=== PATIENT | female | born 1930 | race Caucasian/White ===

== ENCOUNTER 2018-02-23 09:25 | Emergency (ER) | payer MEDICARE, BC ==
[2018-02-23 09:39] LABS: ADD MAN DIFF? NO
[2018-02-23 09:43] LABS: BASOPHIL # 0.1 10^3/ul (0.0-0.1); BASOPHILS % 0.8 % (0.0-2.0); EOSINOPHILS # 0.2 10^3/ul (0.0-0.5); EOSINOPHILS % 3.1 % (0.0-7.0); HEMATOCRIT 35.2 % (37.0-47.0); HEMOGLOBIN 10.6 g/dl (12.0-16.0); LYMPHOCYTES # 1.6 10^3/ul (0.8-2.9); LYMPHOCYTES % 25.8 % (15.0-51.0); MEAN CORPUSCULAR HEMOGLOBIN 26.1 pg (29.0-33.0); MEAN CORPUSCULAR HGB CONC 30.1 g/dl (32.0-37.0); MEAN CORPUSCULAR VOLUME 86.7 fl (82.0-101.0); MEAN PLATELET VOLUME 11.5 fl (7.4-10.4); MONOCYTE # 0.6 10^3/ul (0.3-0.9); MONOCYTES % 9.4 % (0.0-11.0); NEUTROPHIL # 3.8 10^3/ul (1.6-7.5); NEUTROPHILS % 60.6 % (39.0-77.0); PLATELET COUNT 279 10^3/UL (140-415); RED BLOOD COUNT 4.06 10^6/ul (4.20-5.40); RED CELL DISTRIBUTION WIDTH 15.3 % (11.5-14.5)
[2018-02-23 09:43] LABS: WHITE BLOOD COUNT 6.4 10^3/ul (4.8-10.8)
[2018-02-23 10:02] LABS: INR 0.95; PARTIAL THROMBOPLASTIN TIME 27.9 Sec (25.0-35.0); PROTIME 12.8 Sec (11.9-14.9)
[2018-02-23 10:05] LABS: ALANINE AMINOTRANSFERASE 14 IU/L (13-69); ALBUMIN 4.4 g/dl (3.3-4.9); ALBUMIN/GLOBULIN RATIO 1.41; ALKALINE PHOSPHATASE 47 IU/L (42-121); ANION GAP 14 (8-16); ASPARTATE AMINO TRANSFERASE 29 IU/L (15-46); BILIRUBIN,INDIRECT 0.2 mg/dl (0-1.1); BILIRUBIN,TOTAL 0.2 mg/dl (0.2-1.3); BLOOD UREA NITROGEN 40 mg/dl (7-20); CALCIUM 10.1 mg/dl (8.4-10.2); CARBON DIOXIDE 26 mmol/L (21-31); CHLORIDE 108 mmol/L (97-110); CREATININE 1.35 mg/dl (0.44-1.00); GLUCOSE 137 mg/dl (70-220); POTASSIUM 4.4 mmol/L (3.5-5.1); SODIUM 144 mmol/L (135-144); TOTAL PROTEIN 7.5 g/dl (6.1-8.1)
[2018-02-23 10:15] LABS: TROPONIN-I 0.013 ng/ml (0.000-0.120)
[2018-02-23] MEDS: hydrALAzine 20 MG INJ IV (10:56)
[2018-02-23] MEDS: OXYMETAZOLINE 0.05% 15 ML NAS SPRAY NASAL (11:22)
== END 2018-02-23 12:45 | disposition home or self-care (01) ==
LOC: E/R 09:25
DX: R04.0 Epistaxis (principal); I16.0 Hypertensive urgency; I10 Essential (primary) hypertension; E11.9 Type 2 diabetes mellitus without complications; Z79.82 Long term (current) use of aspirin; Z79.01 Long term (current) use of anticoagulants; Z79.84 Long term (current) use of oral hypoglycemic drugs
CPT/HCPCS: 30901; 36415; 80053; 84484; 85025; 85610; 85730; 93005; 96374; 99284-25

== ENCOUNTER 2018-02-27 22:10 | Emergency (ER) | payer MEDICARE, BC ==
[2018-02-27 23:19] LABS: ADD MAN DIFF? NO
[2018-02-27 23:34] LABS: HEMATOCRIT 35.1 % (37.0-47.0); HEMOGLOBIN 10.5 g/dl (12.0-16.0); MEAN CORPUSCULAR HEMOGLOBIN 26.2 pg (29.0-33.0); MEAN CORPUSCULAR HGB CONC 29.9 g/dl (32.0-37.0); MEAN CORPUSCULAR VOLUME 87.5 fl (82.0-101.0); RED BLOOD COUNT 4.01 10^6/ul (4.20-5.40)
[2018-02-27 23:35] LABS: BASOPHIL # 0.1 10^3/ul (0.0-0.1); BASOPHILS % 0.9 % (0.0-2.0); EOSINOPHILS # 0.2 10^3/ul (0.0-0.5); EOSINOPHILS % 2.7 % (0.0-7.0); LYMPHOCYTES # 1.6 10^3/ul (0.8-2.9); LYMPHOCYTES % 22.3 % (15.0-51.0); MEAN PLATELET VOLUME 11.3 fl (7.4-10.4); MONOCYTE # 0.7 10^3/ul (0.3-0.9); MONOCYTES % 9.2 % (0.0-11.0); NEUTROPHIL # 4.5 10^3/ul (1.6-7.5); NEUTROPHILS % 64.6 % (39.0-77.0); PLATELET COUNT 268 10^3/UL (140-415); RED CELL DISTRIBUTION WIDTH 15.4 % (11.5-14.5)
[2018-02-27 23:47] LABS: ANION GAP 14 (8-16); BLOOD UREA NITROGEN 40 mg/dl (7-20); CALCIUM 10.4 mg/dl (8.4-10.2); CARBON DIOXIDE 25 mmol/L (21-31); CHLORIDE 106 mmol/L (97-110); CREATININE 1.41 mg/dl (0.44-1.00); GLUCOSE 111 mg/dl (70-220); POTASSIUM 4.2 mmol/L (3.5-5.1); SODIUM 141 mmol/L (135-144)
[2018-02-27 23:57] LABS: TROPONIN-I < 0.012 ng/ml (0.000-0.120)
== END 2018-02-28 02:05 | disposition home or self-care (01) ==
LOC: E/R 22:10
DX: I48.0 Paroxysmal atrial fibrillation (principal); I10 Essential (primary) hypertension; E11.9 Type 2 diabetes mellitus without complications; Z79.82 Long term (current) use of aspirin; Z79.01 Long term (current) use of anticoagulants; Z79.84 Long term (current) use of oral hypoglycemic drugs
CPT/HCPCS: 36415; 71045; 80048; 84484; 85025; 93005; 99285-25

== ENCOUNTER 2018-03-02 12:00 | Emergency (ER) | payer MEDICARE, BC ==
[2018-03-02 12:24] LABS: ADD MAN DIFF? NO
[2018-03-02] MEDS: METOPROLOL 5 MG INJ IV ×3 (12:25→12:40)
[2018-03-02 12:29] LABS: WHITE BLOOD COUNT 5.9 10^3/ul (4.8-10.8)
[2018-03-02 12:29] LABS: BASOPHIL # 0.1 10^3/ul (0.0-0.1); BASOPHILS % 0.8 % (0.0-2.0); EOSINOPHILS # 0.1 10^3/ul (0.0-0.5); EOSINOPHILS % 2.2 % (0.0-7.0); HEMATOCRIT 33.6 % (37.0-47.0); HEMOGLOBIN 10.3 g/dl (12.0-16.0); LYMPHOCYTES # 1.2 10^3/ul (0.8-2.9); LYMPHOCYTES % 20.8 % (15.0-51.0); MEAN CORPUSCULAR HEMOGLOBIN 26.5 pg (29.0-33.0); MEAN CORPUSCULAR HGB CONC 30.7 g/dl (32.0-37.0); MEAN CORPUSCULAR VOLUME 86.6 fl (82.0-101.0); MEAN PLATELET VOLUME 11.7 fl (7.4-10.4); MONOCYTE # 0.5 10^3/ul (0.3-0.9); MONOCYTES % 9.1 % (0.0-11.0); NEUTROPHILS % 66.9 % (39.0-77.0); PLATELET COUNT 275 10^3/UL (140-415); RED BLOOD COUNT 3.88 10^6/ul (4.20-5.40); RED CELL DISTRIBUTION WIDTH 15.5 % (11.5-14.5)
[2018-03-02 12:46] LABS: ANION GAP 14 (8-16); BLOOD UREA NITROGEN 39 mg/dl (7-20); CALCIUM 10.2 mg/dl (8.4-10.2); CARBON DIOXIDE 24 mmol/L (21-31); CHLORIDE 107 mmol/L (97-110); CREATININE 1.37 mg/dl (0.44-1.00); GLUCOSE 176 mg/dl (70-220); POTASSIUM 4.2 mmol/L (3.5-5.1); SODIUM 141 mmol/L (135-144)
[2018-03-02 12:49] LABS: INR 1.06; PROTIME 13.9 Sec (11.9-14.9); PT RATIO 1.1
[2018-03-02 12:57] LABS: TROPONIN-I 0.013 ng/ml (0.000-0.120)
== END 2018-03-02 14:08 | disposition home or self-care (01) ==
LOC: E/R 12:00
DX: I48.91 Unspecified atrial fibrillation (principal); I10 Essential (primary) hypertension; E11.9 Type 2 diabetes mellitus without complications; Z79.82 Long term (current) use of aspirin; Z79.84 Long term (current) use of oral hypoglycemic drugs
CPT/HCPCS: 36415; 71045; 80048; 84484; 85025; 85610; 85730; 93005; 96374; 99285-25

== ENCOUNTER 2018-03-02 21:33 | Emergency (ER) | payer MEDICARE, BC ==
[2018-03-02 21:56] LABS: ADD MAN DIFF? NO
[2018-03-02 22:00] LABS: BASOPHIL # 0.1 10^3/ul (0.0-0.1); EOSINOPHILS # 0.2 10^3/ul (0.0-0.5); EOSINOPHILS % 2.5 % (0.0-7.0); HEMATOCRIT 33.8 % (37.0-47.0); HEMOGLOBIN 10.2 g/dl (12.0-16.0); LYMPHOCYTES # 1.6 10^3/ul (0.8-2.9); MEAN CORPUSCULAR HEMOGLOBIN 26.2 pg (29.0-33.0); MEAN CORPUSCULAR HGB CONC 30.2 g/dl (32.0-37.0); MEAN CORPUSCULAR VOLUME 86.9 fl (82.0-101.0); MONOCYTE # 0.6 10^3/ul (0.3-0.9); MONOCYTES % 10.8 % (0.0-11.0); NEUTROPHIL # 3.5 10^3/ul (1.6-7.5); NEUTROPHILS % 58.5 % (39.0-77.0); PLATELET COUNT 266 10^3/UL (140-415); RED BLOOD COUNT 3.89 10^6/ul (4.20-5.40); RED CELL DISTRIBUTION WIDTH 15.8 % (11.5-14.5)
[2018-03-02 22:00] LABS: WHITE BLOOD COUNT 5.9 10^3/ul (4.8-10.8)
[2018-03-02 22:20] LABS: ALANINE AMINOTRANSFERASE 19 IU/L (13-69); ALBUMIN 3.9 g/dl (3.3-4.9); ALBUMIN/GLOBULIN RATIO 1.11; ALKALINE PHOSPHATASE 49 IU/L (42-121); ANION GAP 15 (8-16); ASPARTATE AMINO TRANSFERASE 35 IU/L (15-46); BILIRUBIN,INDIRECT 0.2 mg/dl (0-1.1); BILIRUBIN,TOTAL 0.2 mg/dl (0.2-1.3); BLOOD UREA NITROGEN 43 mg/dl (7-20); CALCIUM 10.1 mg/dl (8.4-10.2); CARBON DIOXIDE 24 mmol/L (21-31); CHLORIDE 106 mmol/L (97-110); GLUCOSE 161 mg/dl (70-220); LIPASE 184 U/L (23-300); POTASSIUM 4.6 mmol/L (3.5-5.1); SODIUM 140 mmol/L (135-144); TOTAL PROTEIN 7.4 g/dl (6.1-8.1)
[2018-03-02 22:32] LABS: TROPONIN-I 0.026 ng/ml (0.000-0.120)
== END 2018-03-03 00:29 | disposition home or self-care (01) ==
LOC: E/R 03-03 00:29
DX: I48.91 Unspecified atrial fibrillation (principal); D64.9 Anemia, unspecified; N28.9 Disorder of kidney and ureter, unspecified; E11.9 Type 2 diabetes mellitus without complications; I10 Essential (primary) hypertension; Z79.01 Long term (current) use of anticoagulants; Z79.82 Long term (current) use of aspirin; Z79.84 Long term (current) use of oral hypoglycemic drugs
CPT/HCPCS: 36415; 80053; 83690; 84484; 85025; 99284-25

== ENCOUNTER 2018-07-22 20:32 | Inpatient (IN) | payer MEDICARE, BC ==
[2018-07-22 22:22] LABS: ADD MAN DIFF? NO
[2018-07-22 22:28] LABS: BASOPHILS % 0.2 % (0.0-2.0); HEMATOCRIT 35.6 % (37.0-47.0); HEMOGLOBIN 11.1 g/dl (12.0-16.0); LYMPHOCYTES # 1.1 10^3/ul (0.8-2.9); LYMPHOCYTES % 8.6 % (15.0-51.0); MEAN CORPUSCULAR HEMOGLOBIN 26.1 pg (29.0-33.0); MEAN CORPUSCULAR HGB CONC 31.2 g/dl (32.0-37.0); MEAN CORPUSCULAR VOLUME 83.8 fl (82.0-101.0); MEAN PLATELET VOLUME 10.9 fl (7.4-10.4); MONOCYTE # 0.7 10^3/ul (0.3-0.9); MONOCYTES % 5.1 % (0.0-11.0); NEUTROPHILS % 85.8 % (39.0-77.0); PLATELET COUNT 417 10^3/UL (140-415); RED BLOOD COUNT 4.25 10^6/ul (4.20-5.40); RED CELL DISTRIBUTION WIDTH 16.1 % (11.5-14.5)
[2018-07-22 22:28] LABS: WHITE BLOOD COUNT 12.8 10^3/ul (4.8-10.8)
[2018-07-22] MEDS: SOD CHLORIDE 0.9% 500 ML IV (22:32)
[2018-07-22 22:47] LABS: ALANINE AMINOTRANSFERASE 9 IU/L (13-69); ALBUMIN 4.6 g/dl (3.3-4.9); ALBUMIN/GLOBULIN RATIO 1.17; ALKALINE PHOSPHATASE 54 IU/L (42-121); ANION GAP 22 (5-13); ASPARTATE AMINO TRANSFERASE 30 IU/L (15-46); BILIRUBIN,INDIRECT 0.4 mg/dl (0-1.1); BILIRUBIN,TOTAL 0.4 mg/dl (0.2-1.3); BLOOD UREA NITROGEN 42 mg/dl (7-20); CALCIUM 11.3 mg/dl (8.4-10.2); CARBON DIOXIDE 23 mmol/L (21-31); CHLORIDE 99 mmol/L (97-110); CREATININE 1.68 mg/dl (0.44-1.00); GLUCOSE 161 mg/dl (70-220); INR 1.26; LIPASE 87 U/L (23-300); POTASSIUM 4.3 mmol/L (3.5-5.1); PROTIME 15.9 Sec (11.9-14.9); PT RATIO 1.2; SODIUM 144 mmol/L (135-144); TOTAL PROTEIN 8.5 g/dl (6.1-8.1)
[2018-07-22 22:48] LABS: PARTIAL THROMBOPLASTIN TIME 31.2 Sec (23.0-35.0)
[2018-07-23] MEDS ORDERED: ONDANSETRON 4 MG INJ IV (02:30)
[2018-07-23] MEDS ORDERED: NACL 0.9% 3 ML SYG IV (02:30)
[2018-07-23] MEDS ORDERED: GLUCOSE GEL 15 GRAM TUBE PO ×2 (03:00)
[2018-07-23] MEDS ORDERED: DEXTROSE 50% 50 ML SYRINGE IV ×2 (03:00)
[2018-07-23] MEDS ORDERED: ALBUTEROL/IPRATROPIUM (NEB) 3 ML AMP HHN (03:00)
[2018-07-23] MEDS ORDERED: GUAIFENESIN/CODEINE 5ML CUP PO (03:00)
[2018-07-23] MEDS ORDERED: GLUCAGON 1 MG INJ IM (03:00)
[2018-07-23] MEDS ORDERED: GLUCOSE GEL 15 GRAM TUBE BUCCAL (03:00)
[2018-07-23] MEDS: SOD CHLORIDE 0.9% 1,000 ML IV ×2 (03:35→16:47)
[2018-07-23] MEDS: Insulin NOVOLOG SS MILD Algorithm (NPO/TPN/ENTERAL FEEDS) SC ×3 (06:00→18:00)
[2018-07-23] MEDS ORDERED: INSULIN ASPART [NOVOLOG] 3 ML PEN SC ×3 (06:00→21:00)
[2018-07-23 06:09] LABS: ADD MAN DIFF? NO
[2018-07-23 06:14] LABS: BASOPHIL # 0.1 10^3/ul (0.0-0.1); BASOPHILS % 0.4 % (0.0-2.0); EOSINOPHILS # 0.1 10^3/ul (0.0-0.5); EOSINOPHILS % 0.4 % (0.0-7.0); HEMATOCRIT 29.9 % (37.0-47.0); HEMOGLOBIN 9.5 g/dl (12.0-16.0); LYMPHOCYTES # 1.6 10^3/ul (0.8-2.9); LYMPHOCYTES % 13.5 % (15.0-51.0); MEAN CORPUSCULAR HEMOGLOBIN 26.5 pg (29.0-33.0); MEAN CORPUSCULAR HGB CONC 31.8 g/dl (32.0-37.0); MEAN CORPUSCULAR VOLUME 83.5 fl (82.0-101.0); MEAN PLATELET VOLUME 10.9 fl (7.4-10.4); MONOCYTE # 1.2 10^3/ul (0.3-0.9); MONOCYTES % 9.9 % (0.0-11.0); NEUTROPHILS % 75.3 % (39.0-77.0); PLATELET COUNT 338 10^3/UL (140-415); RED BLOOD COUNT 3.58 10^6/ul (4.20-5.40); RED CELL DISTRIBUTION WIDTH 16.2 % (11.5-14.5)
[2018-07-23 06:24] LABS: HEMOGLOBIN A1C 6.1 % (0-5.9)
[2018-07-23 06:35] LABS: ALANINE AMINOTRANSFERASE 19 IU/L (13-69); ALBUMIN 3.6 g/dl (3.3-4.9); ALBUMIN/GLOBULIN RATIO 1.12; ALKALINE PHOSPHATASE 42 IU/L (42-121); ANION GAP 14 (5-13); ASPARTATE AMINO TRANSFERASE 23 IU/L (15-46); BILIRUBIN,INDIRECT 0.3 mg/dl (0-1.1); BILIRUBIN,TOTAL 0.3 mg/dl (0.2-1.3); BLOOD UREA NITROGEN 34 mg/dl (7-20); CARBON DIOXIDE 24 mmol/L (21-31); CHLORIDE 105 mmol/L (97-110); CREATININE 1.38 mg/dl (0.44-1.00); GLUCOSE 105 mg/dl (70-220); MAGNESIUM 1.8 mg/dl (1.7-2.5); POTASSIUM 4.1 mmol/L (3.5-5.1); SODIUM 143 mmol/L (135-144); TOTAL PROTEIN 6.8 g/dl (6.1-8.1)
[2018-07-23] MEDS: METOPROLOL 25 MG TAB PO ×2 (08:32→21:15)
[2018-07-23] MEDS: FENOFIBRATE 145 MG TAB PO (08:32)
[2018-07-23 10:57] LABS: IRON 34 ug/dl (35-150)
[2018-07-23 11:06] LABS: % IRON SATURATION 12 % SAT (22-52); TOTAL IRON BINDING CAPACITY 279 ug/dl (241-421)
[2018-07-23] MEDS: DOCUSATE SODIUM 100 MG CAP PO ×2 (11:32→21:15)
[2018-07-23] MEDS: POLYETHYLENE GLYCOL 17 GM PACKET PO (11:32)
[2018-07-23] MEDS: morphine 2 MG INJ IV (13:35)
[2018-07-23] MEDS: MINERAL OIL 133 ML ENEMA PR (13:51)
[2018-07-23] MEDS ORDERED: MINERAL OIL 133 ML ENEMA PR (14:00)
[2018-07-23] MEDS: BISACODYL (EC) 5 MG TAB PO (15:21)
[2018-07-23] MEDS: MAGNESIUM CITRATE 300 ML BTL PO (16:46)
[2018-07-23] MEDS: HYDROCODONE/APAP (5/325) TAB PO (17:54)
[2018-07-23] MEDS: POLYETHYLENE GLYCOL 3350 119 GM POWDER PO (17:59)
[2018-07-23] MEDS: Insulin NOVOLOG SS MILD Algorithm (SS with meals and bedtime) SC (21:00)
[2018-07-23] MEDS: LATANOPROST 0.005% 2.5 ML OPH BOTH EYES (21:14)
[2018-07-24] MEDS: ACCU-CHEK XX (02:00)
[2018-07-24 06:28] LABS: ADD MAN DIFF? NO
[2018-07-24 06:30] LABS: WHITE BLOOD COUNT 9.9 10^3/ul (4.8-10.8)
[2018-07-24 06:30] LABS: BASOPHILS % 0.4 % (0.0-2.0); EOSINOPHILS # 0.1 10^3/ul (0.0-0.5); HEMATOCRIT 29.6 % (37.0-47.0); HEMOGLOBIN 9.2 g/dl (12.0-16.0); LYMPHOCYTES # 1.6 10^3/ul (0.8-2.9); LYMPHOCYTES % 15.8 % (15.0-51.0); MEAN CORPUSCULAR HEMOGLOBIN 26.5 pg (29.0-33.0); MEAN CORPUSCULAR HGB CONC 31.1 g/dl (32.0-37.0); MEAN CORPUSCULAR VOLUME 85.3 fl (82.0-101.0); MEAN PLATELET VOLUME 11.1 fl (7.4-10.4); MONOCYTES % 9.9 % (0.0-11.0); NEUTROPHIL # 7.2 10^3/ul (1.6-7.5); NEUTROPHILS % 72.5 % (39.0-77.0); PLATELET COUNT 329 10^3/UL (140-415); RED BLOOD COUNT 3.47 10^6/ul (4.20-5.40); RED CELL DISTRIBUTION WIDTH 16.6 % (11.5-14.5)
[2018-07-24] MEDS: POLYETHYLENE GLYCOL 3350 119 GM POWDER PO (06:41)
[2018-07-24] MEDS: Insulin NOVOLOG SS MILD Algorithm (SS with meals and bedtime) SC (07:30)
[2018-07-24 07:38] LABS: ANION GAP 9 (5-13); BLOOD UREA NITROGEN 31 mg/dl (7-20); CALCIUM 9.8 mg/dl (8.4-10.2); CARBON DIOXIDE 27 mmol/L (21-31); CHLORIDE 108 mmol/L (97-110); CREATININE 1.24 mg/dl (0.44-1.00); GLUCOSE 92 mg/dl (70-220); MAGNESIUM 2.1 mg/dl (1.7-2.5); POTASSIUM 3.2 mmol/L (3.5-5.1); SODIUM 144 mmol/L (135-144)
[2018-07-24] MEDS: SOD CHLORIDE 0.9% 1,000 ML IV ×2 (08:09→18:26)
[2018-07-24] MEDS: DOCUSATE SODIUM 100 MG CAP PO ×2 (08:16→20:29)
[2018-07-24] MEDS: BISACODYL (EC) 5 MG TAB PO (08:16)
[2018-07-24] MEDS: POLYETHYLENE GLYCOL 17 GM PACKET PO (08:18)
[2018-07-24] MEDS: METOPROLOL 25 MG TAB PO ×2 (08:18→20:29)
[2018-07-24] MEDS: FENOFIBRATE 145 MG TAB PO (08:18)
[2018-07-24] MEDS: POTASSIUM CHLORIDE 100 ML IVPB ×2 (11:43→15:24)
[2018-07-24] MEDS: INSULIN ASPART [NOVOLOG] 3 ML PEN SC ×2 (13:00→21:00)
[2018-07-24] MEDS: PROPOFOL 20 ML (17:00)
[2018-07-24] MEDS ORDERED: FENTAnyl 50 MCG/ML VIAL IV ×3 (17:30)
[2018-07-24] MEDS ORDERED: MEPERIDINE 25 MG INJ IV (17:30)
[2018-07-24] MEDS ORDERED: OXYCODONE/ACETAMINOPHEN (5/325) TAB PO ×2 (17:30)
[2018-07-24] MEDS ORDERED: EPHEDrine SULFATE 50 MG/5 ML SYG IV (17:30)
[2018-07-24] MEDS ORDERED: DIPHENHYDRAMINE 50 MG INJ IV (17:30)
[2018-07-24] MEDS ORDERED: METOCLOPRAMIDE 10 MG INJ IV (17:30)
[2018-07-24] MEDS ORDERED: MIDAZOLAM 1 MG/ML 2 ML INJ IV (17:30)
[2018-07-24] MEDS ORDERED: ONDANSETRON 4 MG INJ IV (17:30)
[2018-07-24] MEDS ORDERED: hydrALAzine 20 MG INJ IV (17:30)
[2018-07-24] MEDS ORDERED: LABETALOL HCL 20MG INJ IV (17:30)
[2018-07-24] MEDS: LATANOPROST 0.005% 2.5 ML OPH BOTH EYES (20:29)
[2018-07-25] MEDS: MENTHOL/METH SALICYLATE 30 GM OINT TOP (01:21)
[2018-07-25] MEDS: ACCU-CHEK XX (02:00)
[2018-07-25] MEDS: SOD CHLORIDE 0.9% 1,000 ML IV (02:20)
[2018-07-25 06:21] LABS: ADD MAN DIFF? NO
[2018-07-25 06:25] LABS: BASOPHIL # 0.1 10^3/ul (0.0-0.1); BASOPHILS % 0.8 % (0.0-2.0); EOSINOPHILS # 0.3 10^3/ul (0.0-0.5); EOSINOPHILS % 4.2 % (0.0-7.0); HEMATOCRIT 29.9 % (37.0-47.0); HEMOGLOBIN 9.1 g/dl (12.0-16.0); LYMPHOCYTES # 1.3 10^3/ul (0.8-2.9); LYMPHOCYTES % 20.1 % (15.0-51.0); MEAN CORPUSCULAR HEMOGLOBIN 26.1 pg (29.0-33.0); MEAN CORPUSCULAR HGB CONC 30.4 g/dl (32.0-37.0); MEAN CORPUSCULAR VOLUME 85.7 fl (82.0-101.0); MEAN PLATELET VOLUME 11.1 fl (7.4-10.4); MONOCYTE # 0.7 10^3/ul (0.3-0.9); MONOCYTES % 10.9 % (0.0-11.0); NEUTROPHIL # 4.1 10^3/ul (1.6-7.5); NEUTROPHILS % 63.7 % (39.0-77.0); PLATELET COUNT 298 10^3/UL (140-415); RED BLOOD COUNT 3.49 10^6/ul (4.20-5.40); RED CELL DISTRIBUTION WIDTH 16.3 % (11.5-14.5)
[2018-07-25 06:25] LABS: WHITE BLOOD COUNT 6.4 10^3/ul (4.8-10.8)
[2018-07-25 07:11] LABS: ANION GAP 12 (5-13); BLOOD UREA NITROGEN 19 mg/dl (7-20); CALCIUM 9.5 mg/dl (8.4-10.2); CARBON DIOXIDE 24 mmol/L (21-31); CHLORIDE 106 mmol/L (97-110); CREATININE 0.96 mg/dl (0.44-1.00); GLUCOSE 103 mg/dl (70-220); POTASSIUM 3.4 mmol/L (3.5-5.1); SODIUM 142 mmol/L (135-144)
[2018-07-25] MEDS: INSULIN ASPART [NOVOLOG] 3 ML PEN SC ×4 (07:30→20:30)
[2018-07-25] MEDS: METOPROLOL 25 MG TAB PO ×2 (08:25→20:20)
[2018-07-25] MEDS: DOCUSATE SODIUM 100 MG CAP PO ×2 (08:25→20:20)
[2018-07-25] MEDS: POLYETHYLENE GLYCOL 17 GM PACKET PO (08:25)
[2018-07-25] MEDS: FENOFIBRATE 145 MG TAB PO (08:25)
[2018-07-25] MEDS: POTASSIUM CHLORIDE (SR) 20 MEQ TAB PO (12:55)
[2018-07-25] MEDS: HYDROCODONE/APAP (5/325) TAB PO (18:53)
[2018-07-25] MEDS: LATANOPROST 0.005% 2.5 ML OPH BOTH EYES (20:20)
[2018-07-26] MEDS: ACCU-CHEK XX (02:00)
[2018-07-26] MEDS: MENTHOL/METH SALICYLATE 30 GM OINT TOP ×3 (02:21→18:01)
[2018-07-26 05:37] LABS: ADD MAN DIFF? NO
[2018-07-26 05:40] LABS: WHITE BLOOD COUNT 6.5 10^3/ul (4.8-10.8)
[2018-07-26 05:40] LABS: BASOPHILS % 0.6 % (0.0-2.0); EOSINOPHILS # 0.3 10^3/ul (0.0-0.5); EOSINOPHILS % 4.6 % (0.0-7.0); HEMATOCRIT 32.5 % (37.0-47.0); LYMPHOCYTES # 1.7 10^3/ul (0.8-2.9); LYMPHOCYTES % 26.2 % (15.0-51.0); MEAN CORPUSCULAR HGB CONC 30.8 g/dl (32.0-37.0); MEAN CORPUSCULAR VOLUME 84.6 fl (82.0-101.0); MONOCYTE # 0.7 10^3/ul (0.3-0.9); MONOCYTES % 10.6 % (0.0-11.0); NEUTROPHIL # 3.8 10^3/ul (1.6-7.5); NEUTROPHILS % 57.5 % (39.0-77.0); PLATELET COUNT 316 10^3/UL (140-415); RED BLOOD COUNT 3.84 10^6/ul (4.20-5.40)
[2018-07-26 05:58] LABS: ANION GAP 3 (5-13); BLOOD UREA NITROGEN 15 mg/dl (7-20); CALCIUM 9.9 mg/dl (8.4-10.2); CARBON DIOXIDE 30 mmol/L (21-31); CHLORIDE 106 mmol/L (97-110); CREATININE 1.04 mg/dl (0.44-1.00); GLUCOSE 101 mg/dl (70-220); POTASSIUM 4.4 mmol/L (3.5-5.1); SODIUM 139 mmol/L (135-144)
[2018-07-26] MEDS: INSULIN ASPART [NOVOLOG] 3 ML PEN SC ×4 (07:30→20:28)
[2018-07-26] MEDS: FENOFIBRATE 145 MG TAB PO (08:26)
[2018-07-26] MEDS: POLYETHYLENE GLYCOL 17 GM PACKET PO (08:26)
[2018-07-26] MEDS: DOCUSATE SODIUM 100 MG CAP PO ×2 (08:26→20:18)
[2018-07-26] MEDS: METOPROLOL 25 MG TAB PO ×2 (08:26→20:22)
[2018-07-26] MEDS: DEXTROSE 5%-0.45% NACL 1,000 ML IV (12:34)
[2018-07-26] MEDS ORDERED: POLYETHYLENE GLYCOL 17 GM PACKET PO (14:30)
[2018-07-26] MEDS: LIDOCAINE 5% PATCH TD (14:39)
[2018-07-26] MEDS: LATANOPROST 0.005% 2.5 ML OPH BOTH EYES (20:17)
[2018-07-26] MEDS: HYDROCODONE/APAP (5/325) TAB PO (20:17)
[2018-07-26] MEDS: LOPERAMIDE 2 MG CAP PO (20:18)
[2018-07-27] MEDS: ACCU-CHEK XX (02:00)
[2018-07-27 05:52] LABS: ADD MAN DIFF? NO
[2018-07-27 06:01] LABS: WHITE BLOOD COUNT 6.5 10^3/ul (4.8-10.8)
[2018-07-27 06:01] LABS: BASOPHILS % 0.6 % (0.0-2.0); EOSINOPHILS # 0.2 10^3/ul (0.0-0.5); EOSINOPHILS % 2.6 % (0.0-7.0); HEMATOCRIT 32.4 % (37.0-47.0); HEMOGLOBIN 10.1 g/dl (12.0-16.0); LYMPHOCYTES # 1.6 10^3/ul (0.8-2.9); LYMPHOCYTES % 24.5 % (15.0-51.0); MEAN CORPUSCULAR HGB CONC 31.2 g/dl (32.0-37.0); MEAN CORPUSCULAR VOLUME 83.5 fl (82.0-101.0); MEAN PLATELET VOLUME 11.4 fl (7.4-10.4); MONOCYTE # 0.7 10^3/ul (0.3-0.9); MONOCYTES % 9.9 % (0.0-11.0); NEUTROPHIL # 4.1 10^3/ul (1.6-7.5); NEUTROPHILS % 61.9 % (39.0-77.0); PLATELET COUNT 294 10^3/UL (140-415); RED BLOOD COUNT 3.88 10^6/ul (4.20-5.40); RED CELL DISTRIBUTION WIDTH 16.4 % (11.5-14.5)
[2018-07-27 06:46] LABS: ALANINE AMINOTRANSFERASE 17 IU/L (13-69); ALBUMIN 3.2 g/dl (3.3-4.9); ALBUMIN/GLOBULIN RATIO 1.14; ALKALINE PHOSPHATASE 46 IU/L (42-121); ANION GAP 4 (5-13); ASPARTATE AMINO TRANSFERASE 27 IU/L (15-46); BILIRUBIN,INDIRECT 0.1 mg/dl (0-1.1); BILIRUBIN,TOTAL 0.1 mg/dl (0.2-1.3); BLOOD UREA NITROGEN 19 mg/dl (7-20); CALCIUM 9.8 mg/dl (8.4-10.2); CARBON DIOXIDE 27 mmol/L (21-31); CHLORIDE 108 mmol/L (97-110); CREATININE 1.05 mg/dl (0.44-1.00); GLUCOSE 130 mg/dl (70-220); MAGNESIUM 1.4 mg/dl (1.7-2.5); POTASSIUM 3.7 mmol/L (3.5-5.1); SODIUM 139 mmol/L (135-144)
[2018-07-27] MEDS: INSULIN ASPART [NOVOLOG] 3 ML PEN SC ×4 (07:30→21:00)
[2018-07-27] MEDS: FENOFIBRATE 145 MG TAB PO (08:41)
[2018-07-27] MEDS: DOCUSATE SODIUM 100 MG CAP PO ×2 (08:41→21:16)
[2018-07-27] MEDS: METOPROLOL 25 MG TAB PO ×2 (08:42→21:16)
[2018-07-27] MEDS: LIDOCAINE 5% PATCH TD (09:00)
[2018-07-27] MEDS: HYDROCODONE/APAP (5/325) TAB PO (12:29)
[2018-07-27] MEDS: MAGNESIUM SULFATE 2 GM/50 ML 50 ML IVPB (15:07)
[2018-07-27] MEDS: DEXTROSE 5%-0.45% NACL 1,000 ML IV (15:07)
[2018-07-27] MEDS: LATANOPROST 0.005% 2.5 ML OPH BOTH EYES (21:17)
[2018-07-28] MEDS: ACCU-CHEK XX (00:42)
[2018-07-28] MEDS: ACETAMINOPHEN 325 MG TAB PO (00:53)
[2018-07-28 06:19] LABS: ADD MAN DIFF? NO
[2018-07-28 06:31] LABS: WHITE BLOOD COUNT 8.9 10^3/ul (4.8-10.8)
[2018-07-28 06:31] LABS: BASOPHILS % 0.3 % (0.0-2.0); EOSINOPHILS # 0.1 10^3/ul (0.0-0.5); EOSINOPHILS % 0.7 % (0.0-7.0); HEMATOCRIT 30.7 % (37.0-47.0); HEMOGLOBIN 9.8 g/dl (12.0-16.0); LYMPHOCYTES # 1.2 10^3/ul (0.8-2.9); LYMPHOCYTES % 12.9 % (15.0-51.0); MEAN CORPUSCULAR HEMOGLOBIN 26.7 pg (29.0-33.0); MEAN CORPUSCULAR HGB CONC 31.9 g/dl (32.0-37.0); MEAN CORPUSCULAR VOLUME 83.7 fl (82.0-101.0); MEAN PLATELET VOLUME 11.9 fl (7.4-10.4); MONOCYTE # 0.8 10^3/ul (0.3-0.9); MONOCYTES % 8.5 % (0.0-11.0); NEUTROPHIL # 6.9 10^3/ul (1.6-7.5); NEUTROPHILS % 77.3 % (39.0-77.0); PLATELET COUNT 260 10^3/UL (140-415); RED BLOOD COUNT 3.67 10^6/ul (4.20-5.40); RED CELL DISTRIBUTION WIDTH 16.3 % (11.5-14.5)
[2018-07-28 06:49] LABS: ALANINE AMINOTRANSFERASE 9 IU/L (13-69); ALBUMIN 3.2 g/dl (3.3-4.9); ALBUMIN/GLOBULIN RATIO 1.14; ALKALINE PHOSPHATASE 47 IU/L (42-121); ANION GAP 8 (5-13); ASPARTATE AMINO TRANSFERASE 31 IU/L (15-46); BILIRUBIN,INDIRECT 0.1 mg/dl (0-1.1); BILIRUBIN,TOTAL 0.1 mg/dl (0.2-1.3); BLOOD UREA NITROGEN 15 mg/dl (7-20); CALCIUM 9.9 mg/dl (8.4-10.2); CARBON DIOXIDE 26 mmol/L (21-31); CHLORIDE 106 mmol/L (97-110); CREATININE 1.06 mg/dl (0.44-1.00); GLUCOSE 169 mg/dl (70-220); POTASSIUM 3.8 mmol/L (3.5-5.1); SODIUM 140 mmol/L (135-144)
[2018-07-28 07:13] LABS: MAGNESIUM 1.9 mg/dl (1.7-2.5)
[2018-07-28] MEDS: INSULIN ASPART [NOVOLOG] 3 ML PEN SC ×4 (07:30→20:51)
[2018-07-28 08:33] LABS: ADD UMIC NO; UR ASCORBIC ACID NEGATIVE (NEGATIVE); UR BILIRUBIN (Dip) NEGATIVE (NEGATIVE); UR BLOOD (Dip) NEGATIVE (NEGATIVE); UR CLARITY CLEAR (CLEAR); UR COLOR STRAW (YELLOW); UR GLUCOSE (Dip) NEGATIVE (NEGATIVE); UR KETONES (Dip) NEGATIVE (NEGATIVE); UR LEUKOCYTE ESTERASE (Dip) NEGATIVE Leu/ul (NEGATIVE); UR NITRITE (Dip) NEGATIVE (NEGATIVE); UR SPECIFIC GRAVITY (Dip) 1.004 (1.003-1.030); UR TOTAL PROTEIN (Dip) NEGATIVE (NEGATIVE); UR UROBILINOGEN (Dip) NEGATIVE (NEGATIVE)
[2018-07-28] MEDS: FENOFIBRATE 145 MG TAB PO (08:46)
[2018-07-28] MEDS: DOCUSATE SODIUM 100 MG CAP PO ×2 (08:46→20:47)
[2018-07-28] MEDS: APIXABAN 5 MG TABLET PO ×2 (08:46→20:49)
[2018-07-28] MEDS: METOPROLOL 25 MG TAB PO ×2 (08:50→20:48)
[2018-07-28] MEDS: LIDOCAINE 5% PATCH TD (09:42)
[2018-07-28] MEDS ORDERED: MECLIZINE 12.5 MG TAB PO (12:00)
[2018-07-28] MEDS: FERROUS SULFATE (EC) 325 MG TAB PO (14:00)
[2018-07-28] MEDS: LATANOPROST 0.005% 2.5 ML OPH BOTH EYES (20:47)
[2018-07-29] MEDS: ACCU-CHEK XX (02:00)
[2018-07-29 05:33] LABS: ADD MAN DIFF? NO
[2018-07-29 05:37] LABS: WHITE BLOOD COUNT 7.9 10^3/ul (4.8-10.8)
[2018-07-29 05:37] LABS: BASOPHIL # 0.1 10^3/ul (0.0-0.1); BASOPHILS % 0.6 % (0.0-2.0); EOSINOPHILS # 0.2 10^3/ul (0.0-0.5); EOSINOPHILS % 1.9 % (0.0-7.0); HEMATOCRIT 30.5 % (37.0-47.0); HEMOGLOBIN 9.4 g/dl (12.0-16.0); LYMPHOCYTES # 1.6 10^3/ul (0.8-2.9); LYMPHOCYTES % 20.5 % (15.0-51.0); MEAN CORPUSCULAR HEMOGLOBIN 26.1 pg (29.0-33.0); MEAN CORPUSCULAR HGB CONC 30.8 g/dl (32.0-37.0); MEAN CORPUSCULAR VOLUME 84.7 fl (82.0-101.0); MEAN PLATELET VOLUME 11.7 fl (7.4-10.4); MONOCYTE # 0.9 10^3/ul (0.3-0.9); MONOCYTES % 11.9 % (0.0-11.0); NEUTROPHIL # 5.1 10^3/ul (1.6-7.5); NEUTROPHILS % 64.5 % (39.0-77.0); PLATELET COUNT 265 10^3/UL (140-415); RED CELL DISTRIBUTION WIDTH 16.8 % (11.5-14.5)
[2018-07-29] MEDS: INSULIN ASPART [NOVOLOG] 3 ML PEN SC ×3 (07:30→17:35)
[2018-07-29] MEDS: APIXABAN 5 MG TABLET PO (08:44)
[2018-07-29] MEDS: METOPROLOL 25 MG TAB PO (08:45)
[2018-07-29] MEDS: DOCUSATE SODIUM 100 MG CAP PO (08:45)
[2018-07-29] MEDS: FENOFIBRATE 145 MG TAB PO (08:45)
[2018-07-29] MEDS: FERROUS SULFATE (EC) 325 MG TAB PO (08:45)
[2018-07-29] MEDS: LIDOCAINE 5% PATCH TD (08:46)
== END 2018-07-29 18:45 | DRG 378 ==
LOC: PP2 07-23 01:53 → E/R 20:32
PROC: 0DBN8ZX Excision of Sigmoid Colon, Via Natural or Artificial Opening Endoscopic, Diagnostic (ICD-10-PCS; principal; 2018-07-24 17:00)
DX: K62.5 Hemorrhage of anus and rectum (principal); N17.9 Acute kidney failure, unspecified; K92.1 Melena; K57.30 Diverticulosis of large intestine without perforation or abscess without bleeding; I48.91 Unspecified atrial fibrillation; Z79.01 Long term (current) use of anticoagulants; K64.9 Unspecified hemorrhoids; Z79.02 Long term (current) use of antithrombotics/antiplatelets; E11.9 Type 2 diabetes mellitus without complications; E78.1 Pure hyperglyceridemia; R73.03 Prediabetes; K59.00 Constipation, unspecified; I12.9 Hypertensive chronic kidney disease with stage 1 through stage 4 chronic kidney disease, or unspecified chronic kidney disease; N18.9 Chronic kidney disease, unspecified; D50.9 Iron deficiency anemia, unspecified; D12.5 Benign neoplasm of sigmoid colon; E87.6 Hypokalemia
CPT/HCPCS: 36415; 74176; 80048; 80053; 81003; 82962; 83036; 83540; 83690; 83735; 85025; 85610; 85730; 88305; 97162; 99285-25; G0378

== ENCOUNTER 2018-07-29 19:59 | Inpatient (IN) | payer MEDICARE, BC ==
[2018-07-29] MEDS ORDERED: GLUCAGON 1 MG INJ IM (21:00)
[2018-07-29] MEDS ORDERED: ONDANSETRON 4 MG INJ IV (21:00)
[2018-07-29] MEDS ORDERED: DEXTROSE 50% 50 ML SYRINGE IV ×2 (21:00)
[2018-07-29] MEDS ORDERED: GUAIFENESIN/CODEINE 5ML CUP PO (21:00)
[2018-07-29] MEDS ORDERED: GLUCOSE GEL 15 GRAM TUBE BUCCAL (21:00)
[2018-07-29] MEDS ORDERED: GLUCOSE GEL 15 GRAM TUBE PO ×2 (21:00)
[2018-07-29] MEDS: INSULIN ASPART [NOVOLOG] 3 ML PEN SC (22:00)
[2018-07-29] MEDS: DOCUSATE SODIUM 100 MG CAP PO (22:05)
[2018-07-29] MEDS: METOPROLOL 25 MG TAB PO (22:07)
[2018-07-29] MEDS: APIXABAN 5 MG TABLET PO (22:08)
[2018-07-29] MEDS: LATANOPROST 0.005% 2.5 ML OPH BOTH EYES (22:34)
[2018-07-30] LABS: ADD UMIC YES; UR ASCORBIC ACID NEGATIVE (NEGATIVE); UR BACTERIA FEW /HPF (NONE SEEN); UR BILIRUBIN (Dip) NEGATIVE (NEGATIVE); UR BLOOD (Dip) NEGATIVE (NEGATIVE); UR CLARITY SLIGHTLY CLOUDY (CLEAR); UR COLOR YELLOW (YELLOW); UR GLUCOSE (Dip) NEGATIVE (NEGATIVE); UR KETONES (Dip) NEGATIVE (NEGATIVE); UR LEUKOCYTE ESTERASE (Dip) 3+ Leu/ul (NEGATIVE); UR NITRITE (Dip) NEGATIVE (NEGATIVE); UR RBC 1 /HPF (0-5); UR SPECIFIC GRAVITY (Dip) 1.006 (1.003-1.030); UR SQUAMOUS EPITHELIAL CELL FEW /HPF (FEW); UR TOTAL PROTEIN (Dip) NEGATIVE (NEGATIVE); UR TRANSITIONAL EPI CELL FEW /HPF (NONE SEEN); UR UROBILINOGEN (Dip) NEGATIVE (NEGATIVE); UR WBC 18 /HPF (0-5)
[2018-07-30] MEDS: ACCU-CHEK XX (02:00)
[2018-07-30 05:10] LABS: ADD UMIC NO; UR ASCORBIC ACID NEGATIVE (NEGATIVE); UR BILIRUBIN (Dip) NEGATIVE (NEGATIVE); UR BLOOD (Dip) NEGATIVE (NEGATIVE); UR CLARITY CLEAR (CLEAR); UR COLOR STRAW (YELLOW); UR GLUCOSE (Dip) NEGATIVE (NEGATIVE); UR KETONES (Dip) NEGATIVE (NEGATIVE); UR LEUKOCYTE ESTERASE (Dip) NEGATIVE Leu/ul (NEGATIVE); UR NITRITE (Dip) NEGATIVE (NEGATIVE); UR SPECIFIC GRAVITY (Dip) 1.006 (1.003-1.030); UR TOTAL PROTEIN (Dip) NEGATIVE (NEGATIVE); UR UROBILINOGEN (Dip) NEGATIVE (NEGATIVE)
[2018-07-30] MEDS: INSULIN ASPART [NOVOLOG] 3 ML PEN SC ×4 (07:05→21:00)
[2018-07-30 07:20] LABS: ADD MAN DIFF? NO
[2018-07-30 07:22] LABS: BASOPHILS % 0.7 % (0.0-2.0); EOSINOPHILS # 0.2 10^3/ul (0.0-0.5); EOSINOPHILS % 2.5 % (0.0-7.0); HEMOGLOBIN 9.5 g/dl (12.0-16.0); LYMPHOCYTES # 1.2 10^3/ul (0.8-2.9); LYMPHOCYTES % 19.9 % (15.0-51.0); MEAN CORPUSCULAR HEMOGLOBIN 26.2 pg (29.0-33.0); MEAN CORPUSCULAR HGB CONC 30.6 g/dl (32.0-37.0); MEAN CORPUSCULAR VOLUME 85.6 fl (82.0-101.0); MEAN PLATELET VOLUME 11.8 fl (7.4-10.4); MONOCYTE # 0.8 10^3/ul (0.3-0.9); MONOCYTES % 12.7 % (0.0-11.0); NEUTROPHIL # 3.9 10^3/ul (1.6-7.5); NEUTROPHILS % 63.9 % (39.0-77.0); PLATELET COUNT 261 10^3/UL (140-415); RED BLOOD COUNT 3.62 10^6/ul (4.20-5.40)
[2018-07-30 07:45] LABS: ALANINE AMINOTRANSFERASE 13 IU/L (13-69); ALBUMIN 3.4 g/dl (3.3-4.9); ALBUMIN/GLOBULIN RATIO 1.13; ALKALINE PHOSPHATASE 51 IU/L (42-121); ANION GAP 9 (5-13); ASPARTATE AMINO TRANSFERASE 25 IU/L (15-46); BILIRUBIN,INDIRECT 0.2 mg/dl (0-1.1); BILIRUBIN,TOTAL 0.2 mg/dl (0.2-1.3); BLOOD UREA NITROGEN 20 mg/dl (7-20); CALCIUM 10.2 mg/dl (8.4-10.2); CARBON DIOXIDE 27 mmol/L (21-31); CHLORIDE 105 mmol/L (97-110); CREATININE 1.28 mg/dl (0.44-1.00); GLUCOSE 103 mg/dl (70-220); POTASSIUM 3.6 mmol/L (3.5-5.1); SODIUM 141 mmol/L (135-144); TOTAL PROTEIN 6.4 g/dl (6.1-8.1)
[2018-07-30] MEDS: metFORMIN 500 MG TAB PO (07:54)
[2018-07-30] MEDS: METOPROLOL 25 MG TAB PO ×2 (09:00→20:58)
[2018-07-30] MEDS: LIDOCAINE 5% PATCH TD ×3 (09:00→18:15)
[2018-07-30] MEDS: FENOFIBRATE 145 MG TAB PO (09:18)
[2018-07-30] MEDS: DOCUSATE SODIUM 100 MG CAP PO ×2 (09:18→20:54)
[2018-07-30] MEDS: HYDROCODONE/APAP (5/325) TAB PO (09:19)
[2018-07-30] MEDS: APIXABAN 5 MG TABLET PO ×2 (09:29→20:57)
[2018-07-30] MEDS: FERROUS SULFATE (EC) 325 MG TAB PO (09:29)
[2018-07-30] MEDS: SOD CHLORIDE 0.9% 500 ML IV (12:31)
[2018-07-30] MEDS: MULTIVITAMINS THERAPEUTIC TAB PO (17:58)
[2018-07-30] MEDS: LATANOPROST 0.005% 2.5 ML OPH BOTH EYES (20:48)
[2018-07-31] MEDS: ACCU-CHEK XX (02:00)
[2018-07-31] MEDS: INSULIN ASPART [NOVOLOG] 3 ML PEN SC ×4 (07:05→21:00)
[2018-07-31 07:41] LABS: ANION GAP 6 (5-13); BLOOD UREA NITROGEN 24 mg/dl (7-20); CALCIUM 10.4 mg/dl (8.4-10.2); CARBON DIOXIDE 29 mmol/L (21-31); CHLORIDE 106 mmol/L (97-110); CREATININE 1.27 mg/dl (0.44-1.00); GLUCOSE 101 mg/dl (70-220); POTASSIUM 3.9 mmol/L (3.5-5.1); SODIUM 141 mmol/L (135-144)
[2018-07-31] MEDS: metFORMIN 500 MG TAB PO (07:48)
[2018-07-31] MEDS: FENOFIBRATE 145 MG TAB PO (08:20)
[2018-07-31] MEDS: FERROUS SULFATE (EC) 325 MG TAB PO (08:21)
[2018-07-31] MEDS: METOPROLOL 25 MG TAB PO ×2 (08:21→20:42)
[2018-07-31] MEDS: APIXABAN 5 MG TABLET PO ×2 (08:22→20:41)
[2018-07-31] MEDS: DOCUSATE SODIUM 100 MG CAP PO ×2 (08:22→20:41)
[2018-07-31] MEDS: MULTIVITAMINS THERAPEUTIC TAB PO (08:22)
[2018-07-31] MEDS: LIDOCAINE 5% PATCH TD (08:24)
[2018-07-31] MEDS: LATANOPROST 0.005% 2.5 ML OPH BOTH EYES (20:41)
[2018-08-01] MEDS: ACCU-CHEK XX (02:00)
[2018-08-01] MEDS: INSULIN ASPART [NOVOLOG] 3 ML PEN SC ×4 (07:05→20:38)
[2018-08-01] MEDS: metFORMIN 500 MG TAB PO (08:20)
[2018-08-01] MEDS: FERROUS SULFATE (EC) 325 MG TAB PO (08:34)
[2018-08-01] MEDS: FENOFIBRATE 145 MG TAB PO (08:34)
[2018-08-01] MEDS: MULTIVITAMINS THERAPEUTIC TAB PO (08:35)
[2018-08-01] MEDS: METOPROLOL 25 MG TAB PO ×2 (08:35→20:26)
[2018-08-01] MEDS: APIXABAN 5 MG TABLET PO ×2 (08:35→20:25)
[2018-08-01] MEDS: DOCUSATE SODIUM 100 MG CAP PO ×2 (08:35→20:25)
[2018-08-01] MEDS: LIDOCAINE 5% PATCH TD (08:41)
[2018-08-01] MEDS: LATANOPROST 0.005% 2.5 ML OPH BOTH EYES (20:36)
[2018-08-02] MEDS: ACCU-CHEK XX (02:00)
[2018-08-02] MEDS: INSULIN ASPART [NOVOLOG] 3 ML PEN SC ×4 (07:05→22:00)
[2018-08-02] MEDS: HYDROCODONE/APAP (5/325) TAB PO ×2 (08:25→16:01)
[2018-08-02] MEDS: metFORMIN 500 MG TAB PO (08:25)
[2018-08-02] MEDS: DOCUSATE SODIUM 100 MG CAP PO (09:49)
[2018-08-02] MEDS: APIXABAN 5 MG TABLET PO ×2 (09:49→22:01)
[2018-08-02] MEDS: FERROUS SULFATE (EC) 325 MG TAB PO (09:49)
[2018-08-02] MEDS: FENOFIBRATE 145 MG TAB PO (09:50)
[2018-08-02] MEDS: LIDOCAINE 5% PATCH TD (09:50)
[2018-08-02] MEDS: METOPROLOL 25 MG TAB PO ×2 (09:50→22:04)
[2018-08-02] MEDS: MULTIVITAMINS THERAPEUTIC TAB PO (09:50)
[2018-08-02] MEDS: LATANOPROST 0.005% 2.5 ML OPH BOTH EYES (22:00)
[2018-08-02] MEDS: DOCUSATE SODIUM 10 MG/ML (10ML CUP) PO (22:01)
[2018-08-03] MEDS: ACCU-CHEK XX (02:00)
[2018-08-03] MEDS: INSULIN ASPART [NOVOLOG] 3 ML PEN SC ×4 (07:05→21:00)
[2018-08-03] MEDS: metFORMIN 500 MG TAB PO (07:56)
[2018-08-03] MEDS: METOPROLOL 25 MG TAB PO (09:24)
[2018-08-03] MEDS: MULTIVITAMINS THERAPEUTIC TAB PO (09:25)
[2018-08-03] MEDS: DOCUSATE SODIUM 10 MG/ML (10ML CUP) PO ×2 (09:25→21:00)
[2018-08-03] MEDS: APIXABAN 5 MG TABLET PO ×2 (09:25→21:15)
[2018-08-03] MEDS: HYDROCODONE/APAP (5/325) TAB PO (09:25)
[2018-08-03] MEDS: FERROUS SULFATE (EC) 325 MG TAB PO (09:25)
[2018-08-03] MEDS: FENOFIBRATE 145 MG TAB PO (09:25)
[2018-08-03] MEDS: MENTHOL/METH SALICYLATE 30 GM OINT TOP (09:26)
[2018-08-03] MEDS: LACTULOSE 30ML CUP PO (09:26)
[2018-08-03] MEDS: LIDOCAINE 5% PATCH TD (09:26)
[2018-08-03] MEDS: METOPROLOL 50 MG TAB PO (21:00)
[2018-08-03] MEDS: ACETAMINOPHEN 325 MG TAB PO (21:18)
[2018-08-03] MEDS: LATANOPROST 0.005% 2.5 ML OPH BOTH EYES (21:20)
[2018-08-04] MEDS: ACCU-CHEK XX (02:00)
[2018-08-04] MEDS: INSULIN ASPART [NOVOLOG] 3 ML PEN SC ×4 (07:05→20:34)
[2018-08-04] MEDS: metFORMIN 500 MG TAB PO (07:54)
[2018-08-04] MEDS: METOPROLOL 50 MG TAB PO ×2 (08:49→20:34)
[2018-08-04] MEDS: DOCUSATE SODIUM 10 MG/ML (10ML CUP) PO ×2 (08:49→20:39)
[2018-08-04] MEDS: FENOFIBRATE 145 MG TAB PO (08:49)
[2018-08-04] MEDS: MULTIVITAMINS THERAPEUTIC TAB PO (08:49)
[2018-08-04] MEDS: APIXABAN 5 MG TABLET PO ×2 (08:50→20:33)
[2018-08-04] MEDS: FERROUS SULFATE (EC) 325 MG TAB PO (08:50)
[2018-08-04] MEDS: LIDOCAINE 5% PATCH TD (08:51)
[2018-08-04] MEDS: GABAPENTIN 100 MG CAP PO ×2 (12:59→20:33)
[2018-08-04] MEDS: LATANOPROST 0.005% 2.5 ML OPH BOTH EYES (20:38)
[2018-08-05] MEDS: ACCU-CHEK XX (02:00)
[2018-08-05 06:17] LABS: ADD MAN DIFF? NO
[2018-08-05 06:29] LABS: WHITE BLOOD COUNT 9.2 10^3/ul (4.8-10.8)
[2018-08-05 06:29] LABS: BASOPHIL # 0.1 10^3/ul (0.0-0.1); BASOPHILS % 0.8 % (0.0-2.0); EOSINOPHILS # 0.2 10^3/ul (0.0-0.5); HEMATOCRIT 32.6 % (37.0-47.0); HEMOGLOBIN 10.1 g/dl (12.0-16.0); LYMPHOCYTES # 1.5 10^3/ul (0.8-2.9); LYMPHOCYTES % 16.5 % (15.0-51.0); MEAN CORPUSCULAR HEMOGLOBIN 26.5 pg (29.0-33.0); MEAN CORPUSCULAR VOLUME 85.6 fl (82.0-101.0); MEAN PLATELET VOLUME 11.5 fl (7.4-10.4); NEUTROPHIL # 6.4 10^3/ul (1.6-7.5); NEUTROPHILS % 69.3 % (39.0-77.0); PLATELET COUNT 327 10^3/UL (140-415); RED BLOOD COUNT 3.81 10^6/ul (4.20-5.40); RED CELL DISTRIBUTION WIDTH 16.9 % (11.5-14.5)
[2018-08-05] MEDS: INSULIN ASPART [NOVOLOG] 3 ML PEN SC ×4 (07:05→20:39)
[2018-08-05 07:15] LABS: ANION GAP 9 (5-13); BLOOD UREA NITROGEN 38 mg/dl (7-20); CALCIUM 10.5 mg/dl (8.4-10.2); CARBON DIOXIDE 26 mmol/L (21-31); CHLORIDE 106 mmol/L (97-110); CREATININE 1.62 mg/dl (0.44-1.00); GLUCOSE 102 mg/dl (70-220); MAGNESIUM 1.6 mg/dl (1.7-2.5); PHOSPHORUS 3.6 mg/dl (2.5-4.9); POTASSIUM 4.2 mmol/L (3.5-5.1); SODIUM 141 mmol/L (135-144)
[2018-08-05] MEDS: APIXABAN 5 MG TABLET PO ×2 (08:11→20:40)
[2018-08-05] MEDS: metFORMIN 500 MG TAB PO (08:11)
[2018-08-05] MEDS: GABAPENTIN 100 MG CAP PO (08:11)
[2018-08-05] MEDS: FENOFIBRATE 145 MG TAB PO (08:11)
[2018-08-05] MEDS: MULTIVITAMINS THERAPEUTIC TAB PO (08:11)
[2018-08-05] MEDS: DOCUSATE SODIUM 10 MG/ML (10ML CUP) PO ×2 (08:11→20:40)
[2018-08-05] MEDS: LIDOCAINE 5% PATCH TD (08:11)
[2018-08-05] MEDS: FERROUS SULFATE (EC) 325 MG TAB PO (08:11)
[2018-08-05] MEDS: METOPROLOL 50 MG TAB PO ×2 (08:13→20:41)
[2018-08-05] MEDS: SOD CHLORIDE 0.9% 1,000 ML IV (09:30)
[2018-08-05] MEDS: MAGNESIUM OXIDE 400 MG TAB PO (10:58)
[2018-08-05] MEDS: LATANOPROST 0.005% 2.5 ML OPH BOTH EYES (20:41)
[2018-08-06] MEDS: ACCU-CHEK XX (02:00)
[2018-08-06] MEDS: INSULIN ASPART [NOVOLOG] 3 ML PEN SC ×4 (07:05→20:49)
[2018-08-06 07:24] LABS: ADD MAN DIFF? NO
[2018-08-06 07:28] LABS: BASOPHIL # 0.1 10^3/ul (0.0-0.1); BASOPHILS % 1.1 % (0.0-2.0); EOSINOPHILS # 0.2 10^3/ul (0.0-0.5); EOSINOPHILS % 2.7 % (0.0-7.0); HEMATOCRIT 32.8 % (37.0-47.0); LYMPHOCYTES % 30.3 % (15.0-51.0); MEAN CORPUSCULAR HGB CONC 30.5 g/dl (32.0-37.0); MEAN CORPUSCULAR VOLUME 85.2 fl (82.0-101.0); MEAN PLATELET VOLUME 11.8 fl (7.4-10.4); MONOCYTE # 0.8 10^3/ul (0.3-0.9); MONOCYTES % 11.6 % (0.0-11.0); NEUTROPHIL # 3.6 10^3/ul (1.6-7.5); NEUTROPHILS % 53.8 % (39.0-77.0); PLATELET COUNT 362 10^3/UL (140-415); RED BLOOD COUNT 3.85 10^6/ul (4.20-5.40); RED CELL DISTRIBUTION WIDTH 17.2 % (11.5-14.5)
[2018-08-06 07:28] LABS: WHITE BLOOD COUNT 6.7 10^3/ul (4.8-10.8)
[2018-08-06 07:48] LABS: ANION GAP 7 (5-13); BLOOD UREA NITROGEN 42 mg/dl (7-20); CALCIUM 10.8 mg/dl (8.4-10.2); CARBON DIOXIDE 29 mmol/L (21-31); CHLORIDE 103 mmol/L (97-110); CREATININE 1.63 mg/dl (0.44-1.00); GLUCOSE 102 mg/dl (70-220); MAGNESIUM 1.7 mg/dl (1.7-2.5); PHOSPHORUS 3.7 mg/dl (2.5-4.9); POTASSIUM 4.5 mmol/L (3.5-5.1); SODIUM 139 mmol/L (135-144)
[2018-08-06] MEDS: FENOFIBRATE 145 MG TAB PO (08:26)
[2018-08-06] MEDS: LIDOCAINE 5% PATCH TD (08:26)
[2018-08-06] MEDS: DOCUSATE SODIUM 10 MG/ML (10ML CUP) PO ×2 (08:26→20:44)
[2018-08-06] MEDS: METOPROLOL 50 MG TAB PO ×2 (08:26→20:45)
[2018-08-06] MEDS: MULTIVITAMINS THERAPEUTIC TAB PO (08:26)
[2018-08-06] MEDS: FERROUS SULFATE (EC) 325 MG TAB PO (08:27)
[2018-08-06] MEDS: APIXABAN 5 MG TABLET PO ×3 (08:27→20:44)
[2018-08-06] MEDS: SOD CHLORIDE 0.9% 1,000 ML IV (08:27)
[2018-08-06] MEDS: LATANOPROST 0.005% 2.5 ML OPH BOTH EYES (20:48)
[2018-08-07] MEDS: ACCU-CHEK XX (02:17)
[2018-08-07] MEDS: INSULIN ASPART [NOVOLOG] 3 ML PEN SC ×4 (07:05→21:00)
[2018-08-07] MEDS: HYDROCODONE/APAP (5/325) TAB PO (09:10)
[2018-08-07] MEDS: FENOFIBRATE 145 MG TAB PO (09:11)
[2018-08-07] MEDS: APIXABAN 5 MG TABLET PO ×2 (09:11→21:00)
[2018-08-07] MEDS: DOCUSATE SODIUM 10 MG/ML (10ML CUP) PO ×2 (09:11→21:00)
[2018-08-07] MEDS: METOPROLOL 50 MG TAB PO ×2 (09:12→21:01)
[2018-08-07] MEDS: LIDOCAINE 5% PATCH TD (09:25)
[2018-08-07] MEDS: MULTIVITAMINS THERAPEUTIC TAB PO (09:25)
[2018-08-07] MEDS: FERROUS SULFATE (EC) 325 MG TAB PO (09:25)
[2018-08-07] MEDS: LACTULOSE 30ML CUP PO (21:00)
[2018-08-07] MEDS: LATANOPROST 0.005% 2.5 ML OPH BOTH EYES (21:02)
[2018-08-08] MEDS: ACCU-CHEK XX (02:00)
[2018-08-08] MEDS: INSULIN ASPART [NOVOLOG] 3 ML PEN SC ×4 (07:05→21:34)
[2018-08-08] MEDS: METOPROLOL 50 MG TAB PO ×2 (09:00→20:59)
[2018-08-08] MEDS: DOCUSATE SODIUM 10 MG/ML (10ML CUP) PO ×2 (09:00→20:58)
[2018-08-08] MEDS: FENOFIBRATE 145 MG TAB PO (09:00)
[2018-08-08] MEDS: FERROUS SULFATE (EC) 325 MG TAB PO (09:00)
[2018-08-08] MEDS: MULTIVITAMINS THERAPEUTIC TAB PO (09:00)
[2018-08-08] MEDS: APIXABAN 5 MG TABLET PO ×2 (09:00→20:58)
[2018-08-08] MEDS: LIDOCAINE 5% PATCH TD (09:01)
[2018-08-08] MEDS: HYDROCODONE/APAP (5/325) TAB PO (21:01)
[2018-08-08] MEDS: LATANOPROST 0.005% 2.5 ML OPH BOTH EYES (21:35)
[2018-08-09] MEDS: ACCU-CHEK XX (02:00)
[2018-08-09] MEDS: INSULIN ASPART [NOVOLOG] 3 ML PEN SC ×4 (07:05→21:00)
[2018-08-09] MEDS: METOPROLOL 50 MG TAB PO ×2 (08:59→21:00)
[2018-08-09] MEDS: MULTIVITAMINS THERAPEUTIC TAB PO (08:59)
[2018-08-09] MEDS: FENOFIBRATE 145 MG TAB PO (08:59)
[2018-08-09] MEDS: FERROUS SULFATE (EC) 325 MG TAB PO (09:00)
[2018-08-09] MEDS: APIXABAN 5 MG TABLET PO ×2 (09:00→21:42)
[2018-08-09] MEDS: DOCUSATE SODIUM 10 MG/ML (10ML CUP) PO ×2 (09:00→21:41)
[2018-08-09] MEDS: LIDOCAINE 5% PATCH TD (09:01)
[2018-08-09] MEDS: LATANOPROST 0.005% 2.5 ML OPH BOTH EYES (21:41)
[2018-08-10] MEDS: ACCU-CHEK XX (02:00)
[2018-08-10] MEDS: INSULIN ASPART [NOVOLOG] 3 ML PEN SC ×2 (08:00→12:02)
[2018-08-10] MEDS: APIXABAN 5 MG TABLET PO (08:53)
[2018-08-10] MEDS: MULTIVITAMINS THERAPEUTIC TAB PO (08:53)
[2018-08-10] MEDS: FERROUS SULFATE (EC) 325 MG TAB PO (08:53)
[2018-08-10] MEDS: FENOFIBRATE 145 MG TAB PO (08:53)
[2018-08-10] MEDS: METOPROLOL 50 MG TAB PO (08:54)
[2018-08-10] MEDS: HYDROCODONE/APAP (5/325) TAB PO ×2 (08:54→12:46)
[2018-08-10] MEDS: DOCUSATE SODIUM 10 MG/ML (10ML CUP) PO (08:54)
[2018-08-10] MEDS: LIDOCAINE 5% PATCH TD (08:55)
[2018-08-10] MEDS: LACTULOSE 30ML CUP PO (09:02)
== END 2018-08-10 13:00 | disposition home health service (06) | DRG 92 ==
LOC: VRC 19:59
PROVIDERS: Internal Medicine Pulmonary Disease
DX: G92 Toxic encephalopathy (principal); N17.9 Acute kidney failure, unspecified; K57.92 Diverticulitis of intestine, part unspecified, without perforation or abscess without bleeding; R54 Age-related physical debility; R53.81 Other malaise; F06.31 Mood disorder due to known physiological condition with depressive features; F06.8 Other specified mental disorders due to known physiological condition; R13.10 Dysphagia, unspecified; I48.91 Unspecified atrial fibrillation; E11.9 Type 2 diabetes mellitus without complications; J44.9 Chronic obstructive pulmonary disease, unspecified; R33.9 Retention of urine, unspecified; I12.9 Hypertensive chronic kidney disease with stage 1 through stage 4 chronic kidney disease, or unspecified chronic kidney disease; N18.9 Chronic kidney disease, unspecified; D50.9 Iron deficiency anemia, unspecified; R73.03 Prediabetes; E86.0 Dehydration; K64.9 Unspecified hemorrhoids
CPT/HCPCS: 80048; 80053; 81001; 81003; 82962; 83735; 84100; 85025; 87081; 87086; 92507; 92523; 97110; 97112; 97116; 97150; 97163; 97530; 97535; 97542